=== PATIENT | male | born 1990 | race Caucasian/White ===

== ENCOUNTER 2016-03-11 19:40 | Emergency (ER) | payer BC ==
[~2016-03-11] VITALS: Ht 180.3 cm; Wt 118.2 kg
[~2016-03-11 19:40] MED LIST: OMEP20CA9 PO; RANI150T9 PO
[2016-03-11 19:47] VITALS: Ht 180.3 cm; Wt 118.2 kg
[2016-03-11] MEDS ORDERED: AMO500 PO (20:51)
[2016-03-11] MEDS ORDERED: D-ME473S18 PO (20:51)
--- NOTE | 2016-03-11 21:06 | ERD ---
ER Documentation Chief Complaint Date/Time DATE: 03/11/16 TIME: 20:58 Chief Complaint C/O COLD LIKE SYMPTOMS X 3 WEEKS. STATES CONGESTION IN HIS EARS HPI This is a 25-year-old male presents to the ER with a cough for the last 3 weeks. Cough is dry and constant. Patient states that he works out in the cold and that this is the reason why he has not gotten better. He denies any chest pain or shortness of breath. He does admit to bilateral ear pain. Patient also has intermittent fevers. He denies any chills. ROS 12 point review of systems was done, all negative except per HPI. Medications Home Meds Active Scripts Dextromethorphan Hb-Promethazine Hcl (Promethazine DM Syrup) 473 Ml Syrup, 10 ML PO Q6H Y for COUGH, #4 OZ Prov:REID DAVIS 03/11/16 Amoxicillin* (Amoxicillin*) 500 Mg Cap, 500 MG PO BID for 10 Days, CAP Prov:REID DAVIS 03/11/16 Ranitidine Hcl* (Zantac*) 150 Mg Tablet, 150 MG PO BID Y for PAIN, #30 TAB Prov:JOSUÉ HUDDLESTON PA-C 04/01/15 Omeprazole* (Prilosec*) 20 Mg Capsule.dr, 20 MG PO DAILY, #30 CAP Prov:JOSUÉ HUDDLESTON PA-C 04/01/15 Allergies Allergies: Coded Allergies: No Known Allergy (Unverified , 03/11/16) PMhx/Soc Medical and Surgical Hx: pt denies Medical Hx, pt denies Surgical Hx Hx Alcohol Use: Yes (rarely) Hx Substance Use: No Hx Tobacco Use: No Smoking Status: Never smoker Physical Exam Vitals Vital Signs Date Time Temp Pulse Resp B/P Pulse Ox O2 Delivery O2 Flow Rate FiO2 03/11/16 19:47 97.8 108 20 147/78 97 Physical Exam GENERAL: The patient is well-developed, well-nourished, in no acute distress. NECK: Cervical spine is non tender with no step off. Supple, no nuchal rigidity HEENT: Atraumatic. Pupils equal, round and reactive to light. Extraocular muscles are grossly intact. Conjunctivae pink, no discharge. Bilateral tympanic membranes are clear with no evidence of erythema, effusion or dulling of the light reflex. Tonsilar erythema with no exudates or uvular deviation. Clear rhinorrhea. RESPIRATORY: Clear to auscultation bilaterally. There are no rales, wheezes or rhonchi. HEART: Regular rate and rhythm. No murmurs, clicks, rubs or gallops. EXTREMITIES: No clubbing or cyanosis. Full range of motion. Grossly neurovascularly intact. NEUROLOGIC: Alert and oriented. Cranial nerves II through XII are intact. SKIN: There is no rash. The skin is warm and dry. Procedures/MDM Differential diagnosis includes but is not limited to; Viral URI, allergic rhinitis, bronchitis, pertussis,pneumonia. Cough is likely viral in etiology. Clinical suspicion for pneumonia is low as patient appears well, is not hypoxic or in any respiratory distress. Patient does have otitis media. Plan was discussed with patient they understand and agree. Patient needs to follow up with PCP in 1-2 days or return to ER sooner if symptoms worsen. Departure Diagnosis: Primary Impression: Otitis media Condition: Stable Patient Instructions: Otitis Media, Abx Tx [Child] Additional Instructions: Call your primary care doctor TOMORROW for an appointment during the next 1-2 days.See the doctor sooner or return here if your condition worsens before your appointment time. REID DAVIS Mar 11, 2016 21:06
[2016-03-11 21:12] VITALS: BP 144/82; PULSE 97; RESP 16; TEMP 98.2
== END 2016-03-11 21:12 | disposition home or self-care (01) ==
LOC: FTE 19:40
DX: H66.90 Otitis media, unspecified, unspecified ear (principal)
CPT/HCPCS: 99284

== ENCOUNTER 2017-02-08 03:19 | Emergency (ER) | payer SELFPAY ==
[~2017-02-08] VITALS: Ht 177.8 cm; Wt 137.1 kg
[~2017-02-08 03:19] MED LIST changes: +AMOX500C2 PO; +D-ME473S18 PO
[2017-02-08 03:26] VITALS: Ht 177.8 cm; Wt 137.1 kg
[2017-02-08] MEDS ORDERED: IBUP800T25 PO (04:15)
[2017-02-08] MEDS ORDERED: CYCL-319 PO (04:15)
[2017-02-08] MEDS ORDERED: CYCLOBENZAPRINE 10 MG TAB PO ONE (04:30)
[2017-02-08] MEDS ORDERED: IBUPROFEN 800 MG TAB PO ONE (04:30)
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
== END 2017-02-08 04:48 | disposition home or self-care (01) ==
LOC: FTE 03:19
DX: M62.830 Muscle spasm of back (principal); M62.838 Other muscle spasm
CPT/HCPCS: 99283